=== PATIENT | male | born 1970 | race Asian ===

== ENCOUNTER 2020-04-06 12:19 | Emergency (ER) | payer BC ==
[~2020-04-06] VITALS: Ht 175.3 cm; Wt 95.5 kg
[~2020-04-06 12:19] MED LIST: LEVO50TA11 PO
[2020-04-06] MEDS ORDERED: COLCHICINE 0.6 MG TABLET PO ONE (13:00)
[2020-04-06 13:25] VITALS: BP 109/65
== END 2020-04-06 13:57 | disposition home or self-care (01) ==
LOC: EMS 12:21
DX: M10.9 Gout, unspecified (principal); E03.9 Hypothyroidism, unspecified

== ENCOUNTER 2020-04-06 20:16 | Emergency (ER) | payer BC ==
[~2020-04-06] VITALS: Ht 167.6 cm; Wt 72.7 kg
[2020-04-06] MEDS ORDERED: KETOROLAC TROMETHAMINE 30 MG/ML VIAL IVP ONE (21:30)
[2020-04-06] MEDS ORDERED: 0.9% SODIUM CHLORIDE 10 ML SYRINGE IVP PRN (21:30)
[2020-04-06 22:40] LABS: BASOPHILS % (AUTO) 0.2 % (0.0-2.0); HEMATOCRIT 39.5 % (41-53); HEMOGLOBIN 13.3 g/dL (13.5-17.5); LYMPHOCYTES # (AUTO) 1.1 K/uL (1.0-4.8); LYMPHOCYTES % (AUTO) 12.4 % (22.0-44.0); MEAN CORPUSCULAR HEMOGLOBIN 29.1 pg (26.0-34.0); MEAN CORPUSCULAR HGB CONC 33.6 G/dL (31.0-37.0); MEAN CORPUSCULAR VOLUME 86 fL (80-100); MONOCYTES # (AUTO) 0.6 K/uL (0.1-1.0); MONOCYTES % (AUTO) 6.5 % (2.0-9.0); NEUTROPHILS # (AUTO) 7.3 K/uL (1.8-7.7); NEUTROPHILS % (AUTO) 78.9 % (40.0-70.0); PLATELET COUNT (AUTO) 177 K/uL (150-450); RED BLOOD CELL COUNT(AUTO) 4.57 MIL/uL (4.50-5.90); RED CELL DISTRIBUTION WIDTH 15.7 % (11.5-14.5)
[2020-04-06 22:42] LABS: ANION GAP 12 mmol/L (8-16); CARBON DIOXIDE 25 mmol/L (22-29); CHLORIDE 92 mmol/L (98-107); GLUCOSE,RANDOM 263 mg/dL (70-110); POTASSIUM 3.8 mmol/L (3.5-5.1); SODIUM SERUM 129 mmol/L (136-145)
[2020-04-06 23:04] LABS: CALCIUM, TOTAL 8.8 mg/dL (8.8-10.5); CREATININE 1.08 mg/dL (0.60-1.30); GLOMERULAR FILTR. RATE CALC > 60 mL/min (>60)
[2020-04-06 23:05] LABS: ALKALINE PHOSPHATASE 76 U/L (46-116); BILIRUBIN,TOTAL 1.3 mg/dL (0.1-1.0)
[2020-04-06 23:06] LABS: ALANINE AMINOTRANSFERASE 67 U/L (12-78); ALBUMIN 4.9 g/dL (3.4-5.0); ASPARTATE AMINOTRANSFERASE 48 U/L (15-37); TOTAL PROTEIN, SERUM 7.8 g/dL (6.4-8.2)
[2020-04-06 23:23] LABS: UREA NITROGEN, BLOOD 14 mg/dL (7-18)
[2020-04-06 23:37] VITALS: BP 111/79
== END 2020-04-06 23:49 | disposition home or self-care (01) ==
LOC: EMS 20:16
DX: M10.9 Gout, unspecified (principal); E03.9 Hypothyroidism, unspecified; Z79.899 Other long term (current) drug therapy
CPT/HCPCS: 36415; 73110; 73130; 80053; 85025; 93971; 96374; 99285; J1885

== ENCOUNTER 2020-04-08 09:23 | Emergency (ER) | payer BC ==
[~2020-04-08] VITALS: Ht 167.6 cm; Wt 72.7 kg
[2020-04-08] MEDS ORDERED: TraMADol HCL 50 MG TABLET PO ONE (11:30)
[2020-04-08] MEDS ORDERED: COLCHICINE 0.6 MG TABLET PO ONE (11:30)
[2020-04-08 11:46] LABS: BASOPHILS % (AUTO) 0.9 % (0.0-2.0); EOSINOPHILS % (AUTO) 3.3 % (1.0-6.0); HEMATOCRIT 39.5 % (41-53); LYMPHOCYTES # (AUTO) 1.8 K/uL (1.0-4.8); LYMPHOCYTES % (AUTO) 22.8 % (22.0-44.0); MEAN CORPUSCULAR HEMOGLOBIN 30.2 pg (26.0-34.0); MEAN CORPUSCULAR HGB CONC 35.4 G/dL (31.0-37.0); MEAN CORPUSCULAR VOLUME 85 fL (80-100); MONOCYTES # (AUTO) 0.5 K/uL (0.1-1.0); MONOCYTES % (AUTO) 6.6 % (2.0-9.0); NEUTROPHILS # (AUTO) 5.2 K/uL (1.8-7.7); NEUTROPHILS % (AUTO) 66.4 % (40.0-70.0); PLATELET COUNT (AUTO) 194 K/uL (150-450); RED BLOOD CELL COUNT(AUTO) 4.62 MIL/uL (4.50-5.90); RED CELL DISTRIBUTION WIDTH 16.2 % (11.5-14.5)
[2020-04-08 12:03] LABS: ALBUMIN 3.8 g/dL (3.4-5.0); ANION GAP 11 mmol/L (8-16); BILIRUBIN,TOTAL 0.8 mg/dL (0.1-1.0); CALCIUM, TOTAL 7.9 mg/dL (8.8-10.5); CARBON DIOXIDE 23 mmol/L (22-29); CHLORIDE 95 mmol/L (98-107); GLUCOSE,RANDOM 240 mg/dL (70-110); POTASSIUM 3.8 mmol/L (3.5-5.1); SODIUM SERUM 129 mmol/L (136-145); TOTAL PROTEIN, SERUM 8.2 g/dL (6.4-8.2); UREA NITROGEN, BLOOD 17 mg/dL (7-18)
[2020-04-08 12:17] LABS: ALKALINE PHOSPHATASE 97 U/L (46-116); CREATININE 0.98 mg/dL (0.60-1.30)
[2020-04-08 12:18] LABS: GLOMERULAR FILTR. RATE CALC > 60 mL/min (>60)
[2020-04-08 13:04] LABS: ALANINE AMINOTRANSFERASE 71 U/L (12-78); ASPARTATE AMINOTRANSFERASE 66 U/L (15-37)
[2020-04-08 14:30] VITALS: BP 116/74
[2020-04-08] MEDS ORDERED: KETOROLAC TROMETHAMINE 60 MG/2 ML VIAL IM ONE (15:00)
== END 2020-04-08 14:59 | disposition home or self-care (01) ==
LOC: EMS 09:25
DX: M10.9 Gout, unspecified (principal); M79.89 Other specified soft tissue disorders
CPT/HCPCS: 36415; 80053; 84550; 85025; 96372; 99283; J1885

== ENCOUNTER 2021-04-19 11:34 | Emergency (ER) | payer BC ==
[~2021-04-19] VITALS: Ht 170.2 cm; Wt 74.5 kg
[2021-04-19] MEDS ORDERED: KETOROLAC TROMETHAMINE 30 MG/ML VIAL IM ONE (14:45)
[2021-04-19 15:30] VITALS: BP 140/80
== END 2021-04-19 16:00 | disposition home or self-care (01) ==
LOC: EMS 11:38
DX: M10.9 Gout, unspecified (principal)
CPT/HCPCS: 73130; 96372; 99283; J1885

== ENCOUNTER 2021-05-07 04:37 | Emergency (ER) | payer BC ==
[~2021-05-07] VITALS: Ht 170.2 cm; Wt 73.6 kg
[2021-05-07] MEDS ORDERED: KETOROLAC TROMETHAMINE 30 MG/ML VIAL IM ONE (06:30)
[2021-05-07 06:40] VITALS: BP 153/98
== END 2021-05-07 07:00 | disposition home or self-care (01) ==
LOC: EMS 04:42
DX: M19.031 Primary osteoarthritis, right wrist (principal); E03.9 Hypothyroidism, unspecified; Z79.899 Other long term (current) drug therapy
CPT/HCPCS: 96372; 99283; J1885

== ENCOUNTER 2021-05-12 10:37 | Emergency (ER) | payer BC ==
[~2021-05-12] VITALS: Ht 170.2 cm; Wt 73.6 kg
[2021-05-12 10:47] VITALS: BP 126/90
[2021-05-13] MEDS ORDERED: COLC0.6T73 PO (07:42)
[2021-05-13] MEDS ORDERED: INDO-16 PO (07:42)
== END 2021-05-12 11:33 | disposition home or self-care (01) ==
LOC: EMS 10:37
DX: M10.9 Gout, unspecified (principal)
CPT/HCPCS: 99283; Z7502

== ENCOUNTER 2021-05-13 07:35 | Emergency (ER) | payer BC ==
[~2021-05-13] VITALS: Ht 167.6 cm; Wt 73.6 kg
[2021-05-13 07:37] VITALS: BP 155/99
[2021-05-13] MEDS ORDERED: INDO-16 PO (07:42)
[2021-05-13] MEDS ORDERED: COLC0.6T73 PO (07:42)
[2021-05-13] MEDS ORDERED: LIDOCAINE 5% TRANSDERMAL PATCH TD ONE (08:15)
[2021-05-13] MEDS ORDERED: ACETAMINOPHEN 500 MG TABLET PO ONE (08:15)
== END 2021-05-13 08:48 | disposition home or self-care (01) ==
LOC: EMS 07:35
DX: M13.831 Other specified arthritis, right wrist (principal)
CPT/HCPCS: 99283

== ENCOUNTER 2021-06-10 07:48 | Emergency (ER) | payer BC ==
[~2021-06-10] VITALS: Ht 167.6 cm; Wt 73.6 kg
[~2021-06-10 07:48] MED LIST changes: +COLC0.6T73 PO; +INDO-16 PO
[2021-06-10 12:30] VITALS: BP 136/89
[2021-06-10] MEDS ORDERED: KETOROLAC TROMETHAMINE 60 MG/2 ML VIAL IM ONE (12:30)
== END 2021-06-10 12:57 | disposition home or self-care (01) ==
LOC: EMS 07:54
DX: M25.531 Pain in right wrist (principal); M25.532 Pain in left wrist
CPT/HCPCS: 96372; 99283; J1885

== ENCOUNTER 2021-08-04 07:30 | Emergency (ER) | payer BC ==
[~2021-08-04] VITALS: Ht 167.6 cm; Wt 73.6 kg
[2021-08-04 07:38] VITALS: BP 140/85
[2021-08-04] MEDS ORDERED: KETOROLAC TROMETHAMINE 60 MG/2 ML VIAL IM ONE (08:30)
[2021-08-04] MEDS ORDERED: COLCHICINE 0.6 MG TABLET PO ONE (08:30)
[2021-08-04] MEDS ORDERED: PredniSONE 20 MG TABLET PO ONE (08:30)
== END 2021-08-04 09:23 | disposition home or self-care (01) ==
LOC: EMS 07:30
DX: M10.9 Gout, unspecified (principal); M19.032 Primary osteoarthritis, left wrist; Z79.899 Other long term (current) drug therapy; E03.9 Hypothyroidism, unspecified
CPT/HCPCS: 96372; 99283; J1885; J7512

== ENCOUNTER 2021-08-21 04:17 | Emergency (ER) | payer BC ==
[~2021-08-21] VITALS: Ht 167.6 cm; Wt 73.6 kg
[2021-08-21] MEDS ORDERED: KETOROLAC TROMETHAMINE 60 MG/2 ML VIAL IM ONE (06:30)
[2021-08-21] MEDS ORDERED: OxyCODONE HCL/ACETAMINOPHEN 5-325 MG TABLET PO ONE (06:30)
[2021-08-21 06:40] VITALS: BP 129/76
== END 2021-08-21 07:03 | disposition home or self-care (01) ==
LOC: EMS 04:20
DX: M10.9 Gout, unspecified (principal); M19.031 Primary osteoarthritis, right wrist; E03.9 Hypothyroidism, unspecified; Z79.899 Other long term (current) drug therapy
CPT/HCPCS: 96372; 99283; J1885

== ENCOUNTER 2021-10-12 10:55 | Emergency (ER) | payer BC ==
[~2021-10-12] VITALS: Ht 167.6 cm; Wt 75.0 kg
[2021-10-12 11:09] VITALS: BP 122/88
[2021-10-12] MEDS ORDERED: COLC0.6T73 PO (11:24)
[2021-10-12] MEDS ORDERED: INDO-16 PO (11:24)
[2021-10-12] MEDS ORDERED: KETOROLAC TROMETHAMINE 60 MG/2 ML VIAL IM ONE (11:30)
== END 2021-10-12 11:59 | disposition home or self-care (01) ==
LOC: EMS 10:57
DX: M10.9 Gout, unspecified (principal); M25.531 Pain in right wrist
CPT/HCPCS: 96372; 99283; J1885

== ENCOUNTER 2022-01-23 06:21 | Emergency (ER) | payer BC ==
[~2022-01-23] VITALS: Ht 167.6 cm; Wt 86.4 kg
[2022-01-23] MEDS ORDERED: COLC0.6T73 PO (06:40)
[2022-01-23] MEDS ORDERED: KETOROLAC TROMETHAMINE 60 MG/2 ML VIAL IM ONE (06:45)
[2022-01-23 06:50] VITALS: BP 112/70
== END 2022-01-23 06:55 | disposition home or self-care (01) ==
LOC: EMS 06:21
DX: M10.9 Gout, unspecified (principal); E03.9 Hypothyroidism, unspecified; M19.90 Unspecified osteoarthritis, unspecified site
CPT/HCPCS: 96372; 99283; J1885

== ENCOUNTER 2024-09-09 21:33 | Emergency (ER) | payer BC ==
[~2024-09-09] VITALS: Ht 167.6 cm; Wt 72.7 kg
[~2024-09-09 21:33] MED LIST changes: +COLC-3 PO; -COLC0.6T73 PO
[2024-09-09 21:43] VITALS: TEMP 97.7
[2024-09-09 22:05] LABS: GLUCOMETER DEV NAME(LOC) ERT.6; GLUCOSE,POINT OF CARE 177 MG/DL (70-110)
[2024-09-09 23:14] VITALS: BP 109/73; PULSE 86; RESP 20; O2SAT 100
[2024-09-09 23:18] LABS: BASOPHILS % (AUTO) 1.6 % (0.0-2.0); EOSINOPHILS % (AUTO) 2.1 % (1.0-6.0); HEMOGLOBIN 14.1 g/dL (13.5-17.5); LYMPHOCYTES # (AUTO) 1.7 K/uL (1.0-4.8); LYMPHOCYTES % (AUTO) 28.2 % (22.0-44.0); MEAN CORPUSCULAR HEMOGLOBIN 29.8 pg (26.0-34.0); MEAN CORPUSCULAR HGB CONC 36.3 G/dL (31.0-37.0); MEAN CORPUSCULAR VOLUME 82 fL (80-100); MONOCYTES # (AUTO) 0.4 K/uL (0.1-1.0); MONOCYTES % (AUTO) 6.7 % (2.0-9.0); NEUTROPHILS # (AUTO) 3.7 K/uL (1.8-7.7); NEUTROPHILS % (AUTO) 61.4 % (40.0-70.0); PLATELET COUNT (AUTO) 159 K/uL (150-450); RED BLOOD CELL COUNT(AUTO) 4.75 MIL/uL (4.50-5.90); RED CELL DISTRIBUTION WIDTH 14.8 % (11.5-14.5)
[2024-09-09 23:34] LABS: ANION GAP 5 mmol/L (8-16); CALCIUM, TOTAL 9.4 mg/dL (8.8-10.5); CARBON DIOXIDE 31 mmol/L (22-29); CHLORIDE 96 mmol/L (98-107); CREATININE 1.01 mg/dL (0.60-1.30); GLOMERULAR FILTR. RATE CALC > 60 mL/min (>60); GLUCOSE,RANDOM 195 mg/dL (70-110); POTASSIUM 4.4 mmol/L (3.5-5.1); SODIUM SERUM 132 mmol/L (136-145); UREA NITROGEN, BLOOD 21 mg/dL (7-18)
[2024-09-09 23:39] LABS: TROPONIN I-HIGH SENSITIVITY 5 ng/L (<76)
[2024-09-09 23:56] LABS: ALANINE AMINOTRANSFERASE 140 U/L (12-78); ALBUMIN 4.2 g/dL (3.4-5.0); ALKALINE PHOSPHATASE 112 U/L (46-116); ASPARTATE AMINOTRANSFERASE 47 U/L (15-37); BILIRUBIN,TOTAL 0.6 mg/dL (0.1-1.0); CREATINE KINASE, TOTAL ONLY 387 U/L (39-308); TOTAL PROTEIN, SERUM 8.2 g/dL (6.4-8.2)
[2024-09-09 23:59] LABS: B-TYPE NATRIURETIC PEPTIDE < 5 pg/mL (0-100)
[2024-09-10] MEDS: PEG 400/HYPROMELLOSE/GLYCERIN 15 ML OPHTHALMIC SOLUTION OD ONE (00:04)
[2024-09-10] MEDS: PredniSONE 20 MG TABLET PO ONE (00:04)
[2024-09-10 00:27] LABS: THYROID STIMULATING HORMONE 6.96 uIU/mL (0.36-3.74)
[2024-09-10] MEDS ORDERED: PRED-554 PO (00:50)
== END 2024-09-10 01:21 | disposition home or self-care (01) ==
LOC: EMS 21:33
DX: G51.0 Bell's palsy (principal); M19.90 Unspecified osteoarthritis, unspecified site; E03.9 Hypothyroidism, unspecified; Z79.890 Hormone replacement therapy; Z79.899 Other long term (current) drug therapy
CPT/HCPCS: 99285; 71045; 80048; 80076; 82550; 82962; 83880; 84443; 84484; 85025; 36415; 93005; J7512

== ENCOUNTER 2024-09-14 11:09 | Emergency (ER) | payer BC ==
[~2024-09-14] VITALS: Ht 167.6 cm; Wt 72.0 kg
[~2024-09-14 11:09] MED LIST changes: +PRED-554 PO
[2024-09-14 11:14] VITALS: TEMP 98.2
[2024-09-14] MEDS ORDERED: ROSU40TA88 PO (11:18)
[2024-09-14] MEDS ORDERED: METF-445 PO (11:18)
[2024-09-14] MEDS ORDERED: LISI1TAB53 PO (11:18)
[2024-09-14] MEDS ORDERED: LEVO100 PO (11:18)
[2024-09-14] MEDS ORDERED: ACYC200C24 PO (14:01)
[2024-09-14 15:00] VITALS: BP 112/73; PULSE 79; RESP 16; O2SAT 98
== END 2024-09-14 15:08 | disposition home or self-care (01) ==
LOC: EMS 11:09
DX: G51.0 Bell's palsy (principal); E03.9 Hypothyroidism, unspecified; Z79.52 Long term (current) use of systemic steroids; Z79.84 Long term (current) use of oral hypoglycemic drugs
CPT/HCPCS: 82962; 99283

== ENCOUNTER 2024-09-21 21:57 | Emergency (ER) | payer BC ==
[~2024-09-21] VITALS: Ht 167.6 cm; Wt 68.2 kg
[~2024-09-21 21:57] MED LIST changes: +ACYC200C24 PO; -COLC-3 PO; -INDO-16 PO; +LEVO100 PO; -LEVO50TA11 PO; +LISI1TAB53 PO; +METF-445 PO; +ROSU40TA88 PO
[2024-09-21 22:42] VITALS: BP 109/73; PULSE 100; RESP 16; TEMP 98; O2SAT 100
[2024-09-21] MEDS ORDERED: IBUP-1554 PO (23:50)
[2024-09-21] MEDS ORDERED: HYDR-4062 PO (23:50)
[2024-09-22] MEDS: IBUPROFEN 600 MG TABLET PO ONE (00:11)
[2024-09-22] MEDS: HYDROCODONE/ACETAMINOPHEN 5-325 MG TABLET PO ONE (00:11)
== END 2024-09-22 00:21 | disposition home or self-care (01) ==
LOC: EMS 21:57
DX: S62.111A Displaced fracture of triquetrum [cuneiform] bone, right wrist, initial encounter for closed fracture (principal); E03.9 Hypothyroidism, unspecified; M19.90 Unspecified osteoarthritis, unspecified site; Z79.52 Long term (current) use of systemic steroids; Z79.624 Long term (current) use of inhibitors of nucleotide synthesis; Z79.84 Long term (current) use of oral hypoglycemic drugs; Z79.890 Hormone replacement therapy; X58.XXXA Exposure to other specified factors, initial encounter; Y93.89 Activity, other specified; Y92.89 Other specified places as the place of occurrence of the external cause; Y99.8 Other external cause status
CPT/HCPCS: 99283

== ENCOUNTER 2024-09-26 23:55 | Emergency (ER) | payer BC ==
[~2024-09-26] VITALS: Ht 167.6 cm; Wt 70.9 kg
[~2024-09-26 23:55] MED LIST changes: +HYDR-4062 PO; +IBUP-1554 PO
[2024-09-27 00:37] VITALS: BP 108/70; PULSE 90; RESP 18; TEMP 98; O2SAT 100
[2024-09-27] MEDS: TraMADol HCL 50 MG TABLET PO ONE (02:48)
[2024-09-27] MEDS ORDERED: TRAM50TA5 PO (02:58)
== END 2024-09-27 03:20 | disposition home or self-care (01) ==
LOC: EMS 09-27 00:02
DX: S62.101A Fracture of unspecified carpal bone, right wrist, initial encounter for closed fracture (principal); E03.9 Hypothyroidism, unspecified; M19.90 Unspecified osteoarthritis, unspecified site; Z79.52 Long term (current) use of systemic steroids; Z79.624 Long term (current) use of inhibitors of nucleotide synthesis; Z79.84 Long term (current) use of oral hypoglycemic drugs; Z79.890 Hormone replacement therapy; X58.XXXA Exposure to other specified factors, initial encounter; Y93.89 Activity, other specified; Y92.89 Other specified places as the place of occurrence of the external cause; Y99.8 Other external cause status
CPT/HCPCS: 99283